=== PATIENT | male | born 1985 | race Caucasian/White ===

== ENCOUNTER → 2023-11-17 10:23 | Outpatient (REF) | payer OTHER, SELFPAY | LOC: HWRAD 10:23 | PROVIDERS: ATTENDING PHYSICIAN Nurse Practitioner Family | DX: J40 Bronchitis, not specified as acute or chronic (principal) | CPT/HCPCS: 71046 ==

== ENCOUNTER → 2024-05-23 16:23 | Outpatient (REF) | payer OTHER, SELFPAY | LOC: HWRAD 16:23 | PROVIDERS: ATTENDING PHYSICIAN Nurse Practitioner Family | DX: R50.9 Fever, unspecified (principal); J06.9 Acute upper respiratory infection, unspecified | CPT/HCPCS: 71046 ==